=== PATIENT | male | born 1985 | race American Indian/Alaskan Native ===

== ENCOUNTER 2020-07-01 18:54 | Emergency (ER) | payer OTHER ==
[2020-07-01] MEDS ORDERED: KETOROLAC 30 MG/1 ML INJ IV ONE (19:42)
[2020-07-01] MEDS ORDERED: MORPHINE 4 MG/1 ML INJ IV ONE (19:42)
[2020-07-01] MEDS ORDERED: ONDANSETRON 4 MG/2 ML INJ IV ONE (19:42)
[2020-07-01] MEDS ORDERED: SODIUM CHLORIDE 0.9% 1000 ML 1,000 ML IV ONE (19:42)
--- NOTE | 2020-07-01 19:57 | Emergency Department Report ---
ED General Adult HPI - General Stated complaint: LOW BACK PAIN Time Seen by Provider: 07/01/20 19:41 - History of Present Illness Initial comments: Patient is a 35-year-old male presents emergency room complaints of lower back pain that began 2 weeks ago. He states the pain is worse with standing up or sitting down, bending over. He denies any fall or injury. 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 He states that he went to urgent care yesterday and was given a shot but continues to have pain. He states he was given a prescription for ibuprofen and Tylenol but has not been taking it. He states yesterday at the urgent care he had a temperature of 100.7 but has not been feeling like he has had a fever and has otherwise had no fever. He denies any cough, CP, hemoptysis,shortness of breath , vomiting, diarrhea, dysuria, hematuria, dark urine, odor to the urine, penile discharge, abdominal pain, pain or swelling in the testicles, sore throat, ear pain, numbness, weakness, bowel or bladder incontinence. He states that his blood pressure is frequently high but he has never been placed on high blood pressure medication. He denies any allergies to medications. - Related Data Previous Rx's Medication Instructions Recorded Last Taken Type Naproxen [EC-Naprosyn] 500 mg PO BID PRN #14 tablet. 07/01/20 Unknown Rx methOCARBAMOL [Robaxin TAB] 500 mg PO BID PRN #14 tab 07/01/20 Unknown Rx traMADoL [Ultram 50 MG tab] 50 mg PO Q8HR PRN #10 tablet 07/01/20 Unknown Rx Allergies Allergy/AdvReac Type Severity Reaction Status Date / Time No Known Allergies Allergy Unverified 07/01/20 20:34 ED Review of Systems ROS: Stated complaint: LOW BACK PAIN Other details as noted in HPI Comment: All other systems reviewed and negative ED Past Medical Hx - Medications Home Medications: Home Medications Medication Instructions Recorded Confirmed Last Taken Type Naproxen [EC-Naprosyn] 500 mg PO BID PRN #14 tablet. 07/01/20 Unknown Rx methOCARBAMOL [Robaxin TAB] 500 mg PO BID PRN #14 tab 07/01/20 Unknown Rx traMADoL [Ultram 50 MG tab] 50 mg PO Q8HR PRN #10 tablet 07/01/20 Unknown Rx ED Physical Exam - General General appearance: alert, in no apparent distress - Head Head exam: Present: atraumatic, normocephalic - Eye Eye exam: Present: normal appearance - ENT ENT exam: Present: mucous membranes moist - Neck Neck exam: Present: normal inspection, full ROM. Absent: tenderness, meningismus - Respiratory Respiratory exam: Present: normal lung sounds bilaterally. Absent: respiratory distress, wheezes, rales, rhonchi, stridor, chest wall tenderness, accessory muscle use, decreased breath sounds, prolonged expiratory - Cardiovascular Cardiovascular Exam: Present: regular rate, normal rhythm, normal heart sounds. Absent: systolic murmur, diastolic murmur, rubs, gallop - GI/Abdominal GI/Abdominal exam: Present: soft, normal bowel sounds. Absent: distended, tenderness, guarding, rebound, rigid - Back Exam Back exam: Present: normal inspection, full ROM, CVA tenderness (L), paraspinal tenderness (left lumbar paraspinal muscular ttp, no midline C-spine, T-spine or L-spine ttp, no step offs, no deformities). Absent: vertebral tenderness - Neurological Exam Neurological exam: Present: alert, oriented X3 - Psychiatric Psychiatric exam: Present: normal affect, normal mood - Skin Skin exam: Present: warm, dry, intact ED Course Vital Signs 07/01/20 07/01/20 20:23 21:11 Temperature 99.3 F Pulse Rate 109 H 103 H Respiratory 18 Rate Blood Pressure 184/120 159/96 O2 Sat by Pulse 99 98 Oximetry ED Medical Decision Making - Lab Data Result diagrams: 07/01/20 19:53 07/01/20 19:53 Lab Results 07/01/20 07/01/20 07/01/20 Range/Units 19:53 19:53 20:22 WBC 9.7 (4.5-11.0) K/mm3 RBC 4.96 (3.65-5.03) M/mm3 Hgb 14.0 (11.8-15.2) gm/dl Hct 42.0 (35.5-45.6) % MCV 85 (84-94) fl MCH 28 (28-32) pg MCHC 33 (32-34) % RDW 14.1 (13.2-15.2) % Plt Count 358 (140-440) K/mm3 Lymph % (Auto) 24.7 (13.4-35.0) % [place] % (Auto) 8.7 H (0.0-7.3) % Eos % (Auto) 0.7 (0.0-4.3) % Baso % (Auto) 0.3 (0.0-1.8) % Lymph # (Auto) 2.4 (1.2-5.4) K/mm3 [place] # (Auto) 0.8 (0.0-0.8) K/mm3 Eos # (Auto) 0.1 (0.0-0.4) K/mm3 Baso # (Auto) 0.0 (0.0-0.1) K/mm3 Seg Neutrophils % 65.6 (40.0-70.0) % Seg Neutrophils # 6.3 (1.8-7.7) K/mm3 Sodium 139 (137-145) mmol/L Potassium 3.5 L (3.6-5.0) mmol/L Chloride 103.6 (98-107) mmol/L Carbon Dioxide 25 (22-30) mmol/L Anion Gap 14 mmol/L BUN 11 (9-20) mg/dL Creatinine 0.9 (0.8-1.3) mg/dL Estimated GFR > 60 ml/min BUN/Creatinine Ratio 12 % Glucose 130 H (75-100) mg/dL Calcium 9.5 (8.4-10.2) mg/dL Total Bilirubin 0.30 (0.1-1.2) mg/dL AST 18 (5-40) units/L ALT 47 (7-56) units/L Alkaline Phosphatase 108 (35-129) units/L Total Protein 7.4 (6.3-8.2) g/dL Albumin 4.0 (3.9-5) g/dL Albumin/Globulin Ratio 1.2 % Urine Color Yellow (Yellow) Urine Turbidity Clear (Clear) Urine pH 5.0 (5.0-7.0) Ur Specific [place] 1.016 (1.003-1.030) Urine Protein <15 mg/dl (Negative) mg/dL Urine Glucose (UA) Neg (Negative) mg/dL Urine Ketones Neg (Negative) mg/dL Urine Blood Sm (Negative) Urine Nitrite Neg (Negative) Urine Bilirubin Neg (Negative) Urine Urobilinogen < 2.0 (<2.0) mg/dL Ur Leukocyte Esterase Neg (Negative) Urine WBC (Auto) < 1.0 (0.0-6.0) /HPF Urine RBC (Auto) < 1.0 (0.0-6.0) /HPF U Epithel Cells (Auto) < 1.0 (0-13.0) /HPF Urine Mucus Few /HPF - Radiology Data Radiology results: report reviewed Ordering Physician: SUZE SETHI Date of Service: 07/01/20 Procedure(s): CT abdomen pelvis wo con Accession Number(s): [id number] cc: SUZE SETHI CT OF THE ABDOMEN AND PELVIS WITHOUT CONTRAST INDICATION / CLINICAL INFORMATION: Left flank and lower back pain. TECHNIQUE: All CT scans at this location are performed using CT dose reduction for ALARA by means of automated exposure control. COMPARISON: None available. FINDINGS: ABDOMEN: There is no evidence of urinary tract calculus, hydronephrosis, perinephric soft tissue stranding or mass. The liver, spleen, gallbladder, bile ducts, pancreas, adrenal glands and bowel demonstrate no significant abnormality. No adenopathy is seen. The lung bases are clear. PELVIS: The distal ureters, urinary bladder and prostate gland are normal. A normal appendix is present and there is no evidence of diverticulitis. No abnormal mass or fluid collection is seen. There is a small fat-containing periumbilical hernia without complication. Mild lumbar spondylosis is present. IMPRESSION: No acute abnormality is identified. There is no evidence of urinary tract calculus or hydronephrosis. Signer Name: Leonel Gayle MD Signed: 07/01/2020 8:38 PM Workstation Name: [id number] Transcribed By: RT Dictated By: Leonel Gayle MD Electronically Authenticated By: Leonel Gayle MD Signed Date/Time: 07/01/202037 DD/ 35 TD/TT: - Medical Decision Making Patient is a 35-year-old male presents emergency room complaints of lower back pain that began 2 weeks ago. He states the pain is worse with standing up or sitting down, bending over. He denies any fall or injury. 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 He states that he went to urgent care yesterday and was given a shot but continues to have pain. He states he was given a prescription for ibuprofen and Tylenol but has not been taking it. He states yesterday at the urgent care he had a temperature of 100.7 but has not been feeling like he has had a fever and has otherwise had no fever. He denies any cough, CP, hemoptysis,shortness of breath, vomiting, diarrhea, dysuria, hematuria, dark urine, odor to the urine, penile discharge, abdominal pain, pain or swelling in the testicles, sore throat, ear pain, numbness, weakness, bowel or bladder incontinence. He states that his blood pressure is frequently high but he has never been placed on high blood pressure medication. He denies any allergies to medications. Initial vitals with mild tachycardia and blood pressure which improved upon repeat. On exam:left lumbar paraspinal muscular ttp, no midline C-spine, T-spine or L-spine ttp, no step offs, no deformities, left CVA tenderness, no focal neuro deficits. Labs are stable. UA is within normal limits. CT abdomen pelvis without contrast IMPRESSION: No acute abnormality is identified. There is no evidence of urinary tract calculus or hydronephrosis. Patient given medications while in the emergency department and symptoms improved. Discussed all findings with patient and answered questions. Patient given prescription for naproxen, Robaxin, tramadol. please take medication as prescribed. Do not drive or operate machinery while taking muscle relaxer Robaxin or pain medication tramadol. Follow-up with primary care doctor for reexamination. Return to emergency room immediately for any new or worsening symptoms. Please follow-up with your primary care doctor regarding the elevation in your blood pressure. Increase your water intake. Eat a low-sodium diet. Incorporate 30 to 60 minutes of daily exercise. - Differential Diagnosis Nephrolithiasis, UTI, lumbar strain, bulging disc, DDD Critical care attestation.: If time is entered above; I have spent that time in minutes in the direct care o f this critically ill patient, excluding procedure time. ED Disposition Clinical Impression: Left flank pain, Elevated blood pressure reading Low back pain Qualifiers: Chronicity: acute Back pain laterality: left Sciatica presence: without sciatica Qualified Code(s): M54.5 - Low back pain Disposition: TO HOME OR SELFCARE Is pt being admited?: No Does the pt Need Aspirin: No Condition: Stable Instructions: Acute Back Pain, Adult, Flank Pain, Adult, [id number], Low- Sodium Eating Plan Additional Instructions: please take medication as prescribed. Do not drive or operate machinery while taking muscle relaxer Robaxin or pain medication tramadol. Follow-up with [facility] doctor for reexamination. Return to emergency room immediately for any new or worsening symptoms. Please follow-up with your primary care doctor regarding the elevation in your blood pressure. Increase your water intake. Eat a low-sodium diet. Incorporate 30 to 60 minutes of daily exercise. Prescriptions: Naproxen [EC-Naprosyn] 500 mg PO BID PRN #14 tablet. PRN Reason: pain methOCARBAMOL [Robaxin TAB] 500 mg PO BID PRN #14 tab PRN Reason: pain traMADoL [Ultram 50 MG tab] 50 mg PO Q8HR PRN #10 tablet PRN Reason: Pain , Severe (7-10) Referrals: PRIMARY CARE, [Primary Care Provider] - 2-3 Days Time of Disposition: 21:12 Print Language: YI
[2020-07-01 20:24] LABS: Basophils % (Auto) 0.3 % (0.0-1.8); Eosinophils # (Auto) 0.1 K/mm3 (0.0-0.4); Eosinophils % (Auto) 0.7 % (0.0-4.3); Lymphocytes # (Auto) 2.4 K/mm3 (1.2-5.4); Lymphocytes % (Auto) 24.7 % (13.4-35.0); Mean Corpuscular HGB Conc 33 % (32-34); Mean Corpuscular Volume 85 fl (84-94); Monocytes # (Auto) 0.8 K/mm3 (0.0-0.8); Monocytes % (Auto) 8.7 % (0.0-7.3); Platelet Count 358 K/mm3 (140-440); Red Blood Count 4.96 M/mm3 (3.65-5.03); Red Cell Distribution Width 14.1 % (13.2-15.2)
[2020-07-01 20:41] LABS: Alanine Aminotransferase 47 units/L (7-56); BUN/Creatinine Ratio 12; Blood Urea Nitrogen 11 mg/dL (9-20); Calcium 9.5 mg/dL (8.4-10.2); Hemolysis Index 16
--- NOTE | 2020-07-01 20:43 | Cat Scan Report ---
CT OF THE ABDOMEN AND PELVIS WITHOUT CONTRAST INDICATION / CLINICAL INFORMATION: Left flank and lower back pain. TECHNIQUE: All CT scans at this location are performed using CT dose reduction for ALARA by means of automated e xposure control. COMPARISON: None available. FINDINGS: ABDOMEN: There is no evidence of urinary tract calculus, hydronephrosis, perinephric soft tissue stra nding or mass. The liver, spleen, gallbladder, bile ducts, pancreas, adrenal glands and bowel demonst rate no significant abnormality. No adenopathy is seen. The lung bases are clear. PELVIS: The distal ureters, urinary bladder and prostate gland are normal. A normal appendix is prese nt and there is no evidence of diverticulitis. No abnormal mass or fluid collection is seen. There is a small fat-containing periumbilical hernia without complication. Mild lumbar spondylosis is present . IMPRESSION: No acute abnormality is identified. There is no evidence of urinary tract calculus or hyd ronephrosis. Signer Name: Leonel Gayle MD Signed: 07/01/2020 8:38 PM Workstation Name: [id number]
[2020-07-01 20:52] LABS: Bilirubin,Urine NEG (Negative); Blood,Urine SM (Negative); Color,Urine Yellow (Yellow); Mucus,Urine FEW /HPF; Protein,Urine <15 mg/dL mg/dL (Negative); RBC,Urine < 1.0 /HPF (0.0-6.0); Urobilinogen,Urine < 2.0 mg/dL (<2.0); WBC,Urine < 1.0 /HPF (0.0-6.0)
[2020-07-01 21:13] VITALS: BP 159/96
== END 2020-07-01 21:42 | disposition home or self-care (01) ==
LOC: ED 18:54
DX: M54.5 Low back pain (principal); R10.9 Unspecified abdominal pain; R03.0 Elevated blood-pressure reading, without diagnosis of hypertension; Z79.899 Other long term (current) drug therapy
CPT/HCPCS: 36415; 74176; 80053; 81001; 85025; 96361; 96374; 96375; 99284; J1885; J2270; J2405; J7030